=== PATIENT | male | born 1965 | race Caucasian/White ===

== ENCOUNTER 2017-12-22 10:03 | Day surgery (SDC) | payer BC ==
[2017-12-22] MEDS ORDERED: PROPOFOL 10 MG/ML VIAL IV ONE (10:04)
[2017-12-22] MEDS ORDERED: LIDOCAINE 2% MDV (20MG/ML) 20ML VIAL IV ONE (10:04)
--- NOTE | 2017-12-23 13:50 | Operative Note ---
DATE OF SURGERY: 12/22/2017 OPERATION: COLONOSCOPY to the cecum with cold biopsy forceps polypectomy x2 and cold snare polypectomy x1. INDICATION: Prior history of adenomatous polyps. The patient returns at this time after 3 years for surveillance. He denies current GI issues. ANESTHESIA: Intravenous sedation was administered by the department of anesthesiology and included Diprivan titrated to effect. PROCEDURE: Following informed consent from this alert individual including a discussion of the risks and benefits of the procedure and an opportunity for the patient to ask questions, the patient was in the left lateral decubitus position. A digital rectal examination was performed. No abnormalities were noted. Following this, the Olympus [id number] video colonoscope was inserted into the rectum without resistance. The rectal mucosa had a normal appearance with normal folds and distensibility. The colonoscope was advanced up through the colon to the level of the cecum without much difficulty. Throughout the bowel the mucosa appeared normal, the folds were normal, and the bowel was fairly well distensible. The colon preparation was good. The cecum was well defined by noting the appendiceal orifice and ileocecal valve. Retroflexion in the cecum was endoscopically unremarkable. Upon straightening, there was a diminutive 3 mm polyp noted at the cecal base which was removed with biopsy forceps. The colonoscope was then further withdrawn. No additional changes were noted until the rectum was reached. On retroflexion within the rectum, there were 2 polyps noted distally, the larger measuring 5 mm in size. It was removed with cold snare polypectomy. The smaller polyp measuring 3 mm in size was removed with biopsy forceps. The colonoscope was then straightened and withdrawn. The patient tolerated the procedure well and was returned to the recovery area in stable condition. IMPRESSION: 1. Diminutive 3 mm cecal polyp removed with biopsy forceps. 2. A diminutive 3 mm distal rectal polyp removed with biopsy forceps. 3. A 5 mm distal rectal polyp removed with cold snare polypectomy. RECOMMENDATIONS: The patient was advised he should receive a copy of his pathology report at home in the next 2-3 weeks. If not, he was asked to call my office to review the results of testing today. Further recommendations forthcoming pending those results. Followup will also be with Dr. Edgard Lopez. As always, thank you for allowing me to participate in the care of your patient. CC: Dr. Edgard CARLSON
== END 2017-12-22 11:30 | disposition home or self-care (01) ==
LOC: HOP 10:03
PROVIDERS: ATTEND Internal Medicine Gastroenterology
DX: Z12.11 Encounter for screening for malignant neoplasm of colon (principal); Z86.010 Personal history of colon polyps; D12.0 Benign neoplasm of cecum; K62.1 Rectal polyp; I10 Essential (primary) hypertension; K21.9 Gastro-esophageal reflux disease without esophagitis

== ENCOUNTER 2019-06-24 14:43 | Emergency (ER) | payer BC ==
--- NOTE | 2019-06-24 15:02 | Emergency Department Record ---
History of Present Illness - General Chief Complaint: Headache Migraine Stated Complaint: VALENTIN Time Seen by Provider: 06/24/19 14:50 Source: Patient Mode of Arrival: Ambulatory Limitations: No limitations - History of Present Illness Initial Comments: 54 yo male presents with headaches for 6-7 weeks. The headaches came on gradually. The are mostly frontal and sometimes occipital. At times it is a throbbing pulsation behind the eyes. No vision changes. No speech changes. It is worse with valsalva at times. The headache goes away with Excedrin and then will return. It is better in the mornings and worse later in the day. No speech or hearing changes. No ringing in his ears. Recent travel [place] in the [place] did not worsen the headache. No changes with exertion. No dizziness. MD Complaint: Headache -: Week(s) (6-7) Onset Description: Gradual Location: Frontal, Occipital, Retro-orbital Severity: Moderate Quality: Aching Consistency: Intermittent Improves With: Nothing Worsens With: None Context: Other Associated Symptoms: Other Treatments Prior to Arrival: Other (Excedrin) - Related Data Home Medications Medication Instructions Recorded Confirmed Last Taken Levothyroxine Sodium 75 mcg PO DAILY 06/24/19 06/24/19 06/24/19 Losartan Potassium 100 mg PO DAILY 06/24/19 06/24/19 06/24/19 Omeprazole [Prilosec] 20 mg PO DAILY 06/24/19 06/24/19 06/24/19 Allergies Allergy/AdvReac Type Severity Reaction Status Date / Time No Known Drug Allergies Allergy Verified 06/24/19 15:01 Review of Systems Constitutional: Denies: Chills, Fever, Malaise, Weakness Eyes: Reports: Photophobia. Denies: Eye discharge, Eye pain, Vision change ENT: Denies: Congestion, Throat pain Respiratory: Denies: Cough, Dyspnea Cardiovascular: Denies: Chest pain, Palpitations, Syncope Endocrine: Denies: Fatigue Gastrointestinal: Reports: Nausea. Denies: Abdominal pain, Diarrhea, Vomiting Genitourinary: Denies: Dysuria, Frequency, Hematuria Musculoskeletal: Reports: Neck pain. Denies: Arthralgia, Back pain, Myalgia Skin: Denies: Bruising, Change in color, Rash Neurological: Reports: Headache. Denies: Abnormal gait, Numbness, Tingling, Tremors, Vertigo, Weakness Psychiatric: Denies: Anxiety Hematological/Lymphatic: Denies: Easy bleeding, Easy bruising Physical Exam - General General Appearance: Alert, Oriented x3, Cooperative, No acute distress Limitations: No limitations - Head Head exam: Atraumatic, Normocephalic, Normal inspection - Eye Eye exam: Normal appearance, PERRL, EOMI. negative: Conjunctival injection, Nystagmus, Scleral icterus - ENT ENT exam: Normal exam, Mucous membranes moist Ear exam: Normal external inspection Nasal Exam: Normal inspection Mouth exam: Normal external inspection - Neck Neck exam: Normal inspection - Respiratory Respiratory exam: Normal lung sounds bilaterally. negative: Respiratory distress - Cardiovascular Cardiovascular Exam: Regular rate, Normal rhythm, Normal heart sounds - GI/Abdominal GI/Abdominal exam: Soft. negative: Tenderness - Rectal Rectal exam: Deferred - exam: Deferred - Extremities Extremities exam: Normal inspection. negative: Pedal edema, Tenderness - Back Back exam: Denies: CVA tenderness (R), CVA tenderness (L) - Neurological Neurological exam: Alert, CN II-XII intact, Normal gait, Oriented X3. negative: Abnormal gait, Altered, Motor sensory deficit - Psychiatric Psychiatric exam: Normal affect, Normal mood. negative: Agitated, Anxious - Skin Skin exam: Dry, Intact, Normal color, Warm Course - Reevaluation(s) Reevaluation #1: 06/24/19 15:[address] was reviewed There is a small acute right parietal 5mm subdural hemorrhage 06/24/19 15:57 The case was discussed with the radiologist CTA was ordered as well 06/24/19 16:07 The labs were reviewed The Hgb is 11.8 with MCV of 61 The PT and PTT are normal The CMP is normal 06/24/19 16:17 [facility] was contacted 06/24/19 16:[address] Carr. He recommends transfer for further evaluation at [facility] IM will be contacted for admission. 06/24/19 16:41 [facility] contacted again waiting for Hospitalist to discuss the case 06/24/19 16:46 DR Loaiza accepts the patient for admission 06/24/19 17:16 The CTA of the head and neck were negative for acute process except the small acute right parietal subdural hemorrhage. Waiting for bed assignment at [facility] Medical Decision Making - Lab Data Result diagrams: 06/24/19 15:07 06/24/19 15:07 Disposition Disposition: Transfer Clinical Impression: Subdural hematoma Disposition: Acute Care Hospital Transfer Transfer To: [facility] Reason For Transfer: Subdural hematoma Accepting Physician: Lilly Time Discussed w/Accepting Physician: 16:25 Condition: (2) Stable Forms: Patient Portal Access Time of Disposition: 16:14 Quality - Quality Measures Quality Measures: N/A - Blood Pressure Screening Does Patient Have Any of the Following: Active Dx of HTN Blood Pressure Classification: Hypertensive Reading Systolic Measurement: 166 Diastolic Measurement: 117 Screening for High Blood Pressure: Patient Exclusion, Hx of HTN [G9744]
[2019-06-24 15:12] LABS: ABSOLUTE NEUTROPHIL COUNT 4.44; BASO % 0.5 % (0-6); EOS % 4.8 % (0-6); GRAN % 51.1 % (47-80); HEMATOCRIT 36.2 % (42.0-52.0); HEMOGLOBIN 11.8 gm/dl (14.0-18.0); LYMPH % 36.5 % (16-45); MEAN CORPUSCULAR HGB CONC 32.6 g/dl (32-36); MEAN PLATELET VOLUME 9.9 fl (7.4-10.4); MONO % 7.1 % (0-9); PLATELET COUNT 233 K/uL (130-400); RED BLOOD COUNT 5.85 M/uL (4.40-5.70); RED CELL DISTRIBUTION WIDTH 18.4 % (11.5-14.5); WHITE BLOOD COUNT W/O DIFF 8.7 K/uL (4.2-12.2)
[2019-06-24 15:18] LABS: MEAN CORPUSCULAR HEMOGLOBIN 20.1 pg (27-33)
[2019-06-24 15:19] LABS: MEAN CELL VOLUME 61.9 fl (81-97)
[2019-06-24 15:23] LABS: BLOOD UREA NITROGEN 27 mg/dL (6-20); EST GLOMERULAR FILTRATION RATE > 60 mL/min
[2019-06-24 15:25] LABS: GLUCOSE,RANDOM 83 mg/dL (74-109)
[2019-06-24 15:30] LABS: PARTIAL THROMBOPLASTIN TIME 25.4 SECONDS (24.5-39.1); PROTHROMBIN TIME (PATIENT) 10.7 SECONDS (9.5-12.1)
--- NOTE | 2019-06-24 15:37 | CT SCAN REPORT ---
EXAMINATION: CT Head without IV Contrast EXAM DATE: 06/24/2019 2:59 PM TECHNIQUE: Standard protocol CT images of the head were obtained without intravenous contrast. Walker l and sagittal reconstructed images were created. INDICATION: head ache weeks COMPARISON: None HAND DOMINANCE: Unknown. ENCOUNTER: Not applicable FINDINGS: No acute intracranial hemorrhage, mass or acute cortical infarct evident. No hydrocephalus or focal e erin. Suspect small old left cerebellar infarcts. Partial empty sella. Some subtle prominence of the basilar tip may be developmental variation. Reportedly, the patient is scheduled for CT angiogram brain and neck. IMPRESSION: 1. No acute intracranial hemorrhage. 2. 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 Dictated by: Jesus Gallegos MD on 06/24/2019 3:31 PM. .
[2019-06-24 15:39] LABS: THYROID STIMULATING HORMONE 2.61 uIU/mL (0.270-4.20)
--- NOTE | 2019-06-24 17:02 | CT ANGIOGRAM REPORT ---
EXAMINATION: CT Angiogram of the Head and CT Angiogram of the Neck. EXAM DATE: 06/24/2019 4:15 PM TECHNIQUE: Standard protocol CTA imaging of the head and CTA imaging of the neck was performed with i ntravenous contrast. Three-dimensional reconstructed images were created. Two-dimensional MIP and 3-d imensional reconstructions created. IV Contrast: The amount and type of contrast are recorded in the medical record. PQRI documentation: All internal carotid artery percent stenoses are calculated using the distal int ernal carotid artery diameter as the denominator (NASCET criteria). INDICATION: head ache weeks COMPARISON: Concurrent CT brain. HAND DOMINANCE: Unknown. ENCOUNTER: Not applicable CTA HEAD FINDINGS: Some vertebral basilar tortuosity noted. No intracranial aneurysm or focal arterial stenosis apprecia kunal. The left transverse sinus is quite small probably developmental variation as the right transvers e and sigmoid are larger than the right jugular is larger than the left. Small right parietal subdural hematoma was more easily appreciated on the prior brain CT and is not d ifferent in the short term interval. 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 CTA NECK FINDINGS: Standard aortic anatomy without stenosis at origin of great vessels. No stenosis at origin or along t he cervical course of either vertebral artery. No common or internal carotid artery stenosis evident on either side. There are loops in the cervical internal carotid arteries. Mild cervical spine degenerative changes are noted. IMPRESSION: 1. No arterial stenosis or dissection in the cervical cephalic arteries. 2. No intracranial aneurysm or large vessel occlusive phenomenon. 3. Small right parietal subdural hematoma. Dictated by: Jesus Gallegos MD on 06/24/2019 5:00 PM. .
== END 2019-06-24 18:07 | disposition short-term general hospital (02) ==
LOC: MERGE 14:43 → ER 14:43
DX: I62.01 Nontraumatic acute subdural hemorrhage (principal); R11.0 Nausea; I10 Essential (primary) hypertension; F17.210 Nicotine dependence, cigarettes, uncomplicated
CPT/HCPCS: 70450; 70496; 70498; 80048; 84443; 85025; 85610; 85730; 99285